=== PATIENT | male | born 1995 ===

== ENCOUNTER 2021-10-27 01:32 | Outpatient (CLI) | payer OTHER, SELFPAY ==
[2021-10-30 11:24] LABS: Hepatitis C Ab w Rflx HCV PCR Reactive (Negative)
[2021-11-01 13:05] LABS: HCV RNA Qualitative Undetected (Undetected)
== END 2021-10-27 01:33 | disposition home or self-care (01) ==
LOC: LBO 01:34
PROVIDERS: Visit Provider Emergency Medicine
DX: Z11.59 Encounter for screening for other viral diseases (principal); Z01.84 Encounter for antibody response examination
CPT/HCPCS: 36415; 86803; 87522